=== PATIENT | female | born 2000 | race Caucasian/White ===

== ENCOUNTER 2020-08-18 10:22 | Emergency (ER) | payer BC, SELFPAY ==
[2020-08-18 10:24] VITALS: BP 121/70; PULSE 89; RESP 17; TEMP 36; O2SAT 100; BMI 27.8
--- NOTE | 2020-08-18 11:06 | US_ITS ---
INDICATION: left pelvic pain EXAMINATION: Ultrasound US Transvaginal Non-OB TECHNIQUE: Transvaginal (for optimal evaluation of the adnexa) pelvic ultrasound was performed. Grayscale, spectral waveform, and color flow Doppler evaluation of the adnexa. COMPARISON: None. FINDINGS: UTERUS: Anteverted. The uterus measures 6.3 x 2.75 x 3.9 cm for a total volume of 35.33 cm There is no uterine mass. The endometrial stripe measures 16 mm in AP diameter which is within normal limits. RIGHT OVARY: 4.74 x 2.12 x 3.3 cm. Non-enlarged, normal echogenicity. There is normal arterial inflow and venous outflow present in the right ovary physiologic cyst are noted in the right ovary. LEFT OVARY: 3.72 x 2.3 x 2.98 cm. Non-enlarged, normal echogenicity. There is normal arterial inflow and venous outflow present in the left ovary. Physiologic cyst is seen in the left ovary FREE FLUID: None. US/Transvaginal Non- IMPRESSION: Normal transvaginal pelvic ultrasound Electronically Signed: Hal De Los Santos, at 13:32 EST Tel , Service support ,
--- NOTE | 2020-08-18 11:14 | ED.DCSUM_ITS ---
- ER Visit Summary Date of Service: 08/18/20 Chief Complaint: Abdominal pain History of Present Illness: The patient is a 19 F who presents with abdominal pain that has been getting worse over the past 3 days. Patient states the pain is waxing and waning. Patient states the pain is on the left side of her abdomen. Patient describes it as stabbing. Patient states nothing makes it worse and nothing makes it better. Patient admits to nausea but denies any vomiting. Patient states her last menstrual period was 04/07/2020. Patient states her [employer] told her to come in for possible tubal miscarriage. Physical Examination: Vital signs are stable. Patient is afebrile. Patient is in no acute distress. Oral mucosa is pink and moist. Neck is supple. Trachea is midline. There is no JVD. Heart was regular rate and rhythm. Lungs are clear and equal bilaterally. Abdomen is soft. Bowel sounds are normal. There is some mild left lower quadrant tenderness. There is no rebound or guarding noted. Cranial nerves II through XII are intact. There are no focal motor or sensory deficits. Extremities are intact. There is no calf tenderness or edema. Test Results: CBC was normal. Quantitative hCG was less than 1. Urinalysis is normal. Blood type was A-. Pelvic ultrasound was obtained for possible miscarriage. There is no acute abnormality. There is no noted. This was interpreted by the radiologist and reviewed by myself. Emergency Department Course and Treatment: Since the patient is blood type a negative. RhoGam was ordered for the patient. Patient was instructed to follow-up with her [employer] in 5 to 7 days. Patient understood and was agreeable with the plan. All questions were answered. Disposition: Discharge home Impression: 1. Complete miscarriage This note was generated with [employer] software. It may contain incorrect words, spelling, and punctuation that were not noted in review of the chart prior to signing ED Disposition - Plan for ED Patient: Disposition: Home or Assisted Living Diagnosis: Complete spontaneous Instructions: ED MISCARRIAGE Completed Referrals: Charlee Rodriguez NP, INJURY/SAFETY HAZARD ASSESSMENT-C [Primary Care Provider] - 5-7 Days
[2020-08-18] MEDS: 0.9% Normal Saline 1,000 ML 1000 ML IV (11:17)
[2020-08-18 11:24] LABS: Absolute Lymphocyte Count 1.91 X10^3/uL (0.83-4.51); Absolute Neutrophil Count 2.8 X10^3/uL (2.0-7.7); Basophil# 0.03 X10^3/uL; Basophil% 0.6 % (0-1); Eosinophil# 0.08 X10^3/uL; Eosinophils% 1.5 % (0-5); Lymphocyte # 1.91 X10^3/ul (4.0); Lymphocyte % 36.8 % (19-41); Mean Corp Hgb Conc 33.3 g/dL (32-36); Mean Corpuscular Hgb 30.8 pg (27.0-32.0); Mean Corpuscular Volume 92.3 fL (81-99); Mean Platelet Vol. 10.5 fl (6.2-12.0); Monocyte# 0.33 X10^3/uL; Monocyte% 6.4 % (0-10); NRBC Flagged by Analyzer 0 % (0-5); Neutrophil # 2.83 X10^3/uL (2.7-7.7); Neutrophil % 54.5 % (47-70); Platelet Count 238 K/mm3 (150-450); RBC Distribution Width CV 11.9 % (11.6-14.6); Red Blood Count 4.55 M/mm3 (4.2-5.4); White Blood Count 5.2 K/mm3 (4.4-11.0)
[2020-08-18 11:41] LABS: hCG Titer Quant., Serum < 1 mIU/mL (1-3)
[2020-08-18 13:23] VITALS: BP 104/58; PULSE 53; RESP 16; O2SAT 100
[2020-08-18 13:59] LABS: Bacteria 0 SEEN /hpf (None Seen); Mucous, Urine 0 SEEN /hpf (<or=2+); Red Blood Cells-Urine 0 SEEN /hpf (0-5); White Blood Cells 0 SEEN /hpf (0-5)
[2020-08-18 14:02] LABS: Color, Urine Yellow (Yellow); Glucose, Dipstick Normal (Normal); Ketone-Dipstick Negative (Negative); Leukocyte Esterase-Dipstick Negative /ul (Negative); Nitrite-Dipstick Negative (Negative); Occult Blood-Urine Negative /ul (Negative); Protein-Dipstick Negative (Negative); Urine Bilirubin Dipstick Negative (Negative); Urine Clarity Sl. Cloudy (Clear); Urine Urobilinogen Normal (Normal)
[2020-08-18 14:07] LABS: Amorphous Sediment 1+ URATE; Squamous Epithelial Cells - UA 0-5 SEEN /hpf (5-10)
== END 2020-08-18 16:06 | disposition home or self-care (01) ==
PROVIDERS: Emergency Provider Emergency Medicine; PCP Nurse Practitioner Family
DX: O03.9 Complete or unspecified spontaneous abortion without complication (principal); F17.290 Nicotine dependence, other tobacco product, uncomplicated
CPT/HCPCS: 76830; 81001; 84702; 85025; 86850; 86900; 86901; 90384; 93976; 96360; 96372; 99282; J7030; J2790

== ENCOUNTER → 2020-09-04 09:56 | Outpatient (CLI) | payer BC, SELFPAY ==
[2020-08-18 10:24] VITALS: BMI 27.8
[2020-09-04 10:53] LABS: Glucose 75GTT - Fasting 80 mg/dL (70-99)
[2020-09-04 10:59] LABS: Insulin 75GTT - Fasting 10.9 mU/L (2.6-37.6)
[2020-09-04 11:43] LABS: Hemoglobin A1c 4.8 % (3.8-5.6)
[2020-09-04 12:09] LABS: Glucose 75GTT - 30 minutes 100 mg/dL (100-160)
[2020-09-04 12:09] LABS: Glucose 75GTT - 60 minutes 97 mg/dL (100-160)
[2020-09-04 12:21] LABS: Insulin 75GTT - 30 MIN 81.5 mU/L (Not Estab.)
[2020-09-04 12:22] LABS: Insulin 75GTT - 60 min 152.3 mU/L (Not Estab)
[2020-09-04 13:10] LABS: Glucose 75GTT - 120 minutes 74 mg/dL (70-140)
[2020-09-04 13:17] LABS: Insulin 75GTT - 120 min 59.2 mU/L (Not Estab.)
== END ==
PROVIDERS: PCP Nurse Practitioner Family; Referring Provider Obstetrics & Gynecology; Visit Provider Obstetrics & Gynecology
DX: E28.1 Androgen excess (principal); R73.09 Other abnormal glucose
CPT/HCPCS: 36415; 82951; 82952; 83036; 83525

== ENCOUNTER → 2021-04-13 | Outpatient (CLI) | payer BC, SELFPAY | END | disposition home or self-care (01) | LOC: LABSPEC 13:50 | PROVIDERS: PCP Nurse Practitioner Family; Visit Provider Obstetrics & Gynecology | DX: R35.0 Frequency of micturition (principal) | CPT/HCPCS: 87086; 87088 ==

== ENCOUNTER → 2021-05-04 08:56 | Outpatient (CLI) | payer BC, SELFPAY ==
[2021-05-06 13:32] LABS: Sex Hormone-binding Globulin 34.4 nmol/L (24.6-122.0)
== END ==
PROVIDERS: PCP Nurse Practitioner Family; Visit Provider Obstetrics & Gynecology
DX: E28.1 Androgen excess (principal); E28.2 Polycystic ovarian syndrome; N92.5 Other specified irregular menstruation; N94.6 Dysmenorrhea, unspecified
CPT/HCPCS: 36415; 82533; 82627; 84270; 84403; 82626

== ENCOUNTER → 2021-06-17 09:07 | Outpatient (CLI) | payer BC, SELFPAY | PROVIDERS: PCP Nurse Practitioner Family; Visit Provider Obstetrics & Gynecology | DX: E28.2 Polycystic ovarian syndrome (principal); Z51.81 Encounter for therapeutic drug level monitoring | CPT/HCPCS: 36415; 82533; 82627; 84403; 82626 ==

== ENCOUNTER 2021-10-05 12:09 | Outpatient (CLI) | payer BC, SELFPAY ==
[2021-10-05 13:30] LABS: Progesterone Level 1.88 ng/mL (See Comment); Vitamin D,25 Hydroxy 21.8 ng/mL
== END 2021-10-05 23:59 | disposition short-term general hospital (02) ==
LOC: WOBLAB 12:10
PROVIDERS: PCP Nurse Practitioner Family; Visit Provider Obstetrics & Gynecology
DX: E28.2 Polycystic ovarian syndrome (principal); E28.1 Androgen excess; E55.9 Vitamin D deficiency, unspecified
CPT/HCPCS: 36415; 82306; 82627; 84144; 82626

== ENCOUNTER → 2022-03-29 | Outpatient (CLI) | payer BC, SELFPAY ==
[2022-03-29 17:59] LABS: hCG Titer Quant., Serum < 1 mIU/mL (1-3)
[2022-03-29 18:01] LABS: Progesterone Level 1.03 ng/mL (See Comment); Vitamin D,25 Hydroxy 30.9 ng/mL
== END | disposition home or self-care (01) ==
LOC: WOBLAB 15:31
PROVIDERS: PCP Nurse Practitioner Family; Visit Provider Obstetrics & Gynecology
DX: E55.9 Vitamin D deficiency, unspecified (principal); N91.5 Oligomenorrhea, unspecified
CPT/HCPCS: 36415; 82306; 84144; 84702

== ENCOUNTER → 2022-08-15 | Outpatient (CLI) | payer BC, SELFPAY ==
[2022-08-15 14:48] LABS: EXAGEN MAILED SPECIMEN
[2022-08-15 17:47] LABS: Absolute Lymphocyte Count 5.52 X10^3/uL (0.83-4.51); Absolute Neutrophil Count 11.1 X10^3/uL (2.0-7.7); Basophil# 0.12 X10^3/uL; Basophil% 0.7 % (0-1); Eosinophil# 0.14 X10^3/uL; Eosinophils% 0.8 % (0-5); Hematocrit 40.2 % (37-47); Hemoglobin 13.6 g/dL (12.0-15.0); Lymphocyte # 5.52 X10^3/ul (0.83-4.51); Lymphocyte % 30.3 % (19-41); Mean Corp Hgb Conc 33.8 g/dL (32-36); Mean Corpuscular Hgb 29.7 pg (27.0-32.0); Mean Corpuscular Volume 87.8 fL (81-99); Mean Platelet Vol. 10.5 fl (6.2-12.0); Monocyte% 5.5 % (0-10); NRBC Flagged by Analyzer 0 % (0-5); Neutrophil # 11.14 X10^3/uL (2.7-7.7); Neutrophil % 61.1 % (47-70); POSITIVE DIFFERENTIAL YES; Platelet Count 315 K/mm3 (150-450); RBC Distribution Width CV 11.9 % (11.6-14.6); RBC Distribution Width SD 38.3 fl (35.1-43.9); Red Blood Count 4.58 M/mm3 (4.2-5.4); White Blood Count 18.2 K/mm3 (4.4-11.0)
[2022-08-15 17:52] LABS: Differential Indicated SCAN CRITERIA MET
[2022-08-15 17:56] LABS: Prothrombin Time (Protime)PT. 13.1 SECONDS (11.7-14.9)
[2022-08-15 17:59] LABS: Color, Urine Yellow (Yellow); Glucose, Dipstick Normal (Normal); Ketone-Dipstick Negative (Negative); Leukocyte Esterase-Dipstick Negative /ul (Negative); Nitrite-Dipstick Negative (Negative); Occult Blood-Urine 150 /ul (Negative); Protein-Dipstick 15 mg/dl (Negative); Specific Gravity, Urine 1.025 (1.002-1.030); Urine Bilirubin Dipstick Negative (Negative); Urine Clarity Sl. Cloudy (Clear); Urine Urobilinogen Normal (Normal)
[2022-08-15 18:09] LABS: Differential Comment SCANNED
[2022-08-15 18:36] LABS: ALB/GLOB Ratio 0.9 RATIO (0.9-2.4); AST(SGOT) 8 U/L (15-37); Alanine Aminotransfer ALT/SGPT 21 U/L (13-56); Albumin, Serum 3.6 g/dL (3.2-5.0); Alkaline Phosphatase 80 U/L (45-117); Anion Gap 10 (5-15); BUN 20 mg/dL (7-18); BUN/Creat Ratio 21.6 RATIO (10-20); Calcium,Total 8.8 mg/dL (8.5-10.1); Chloride 105 mmol/L (98-107); Creatinine, Serum 0.93 mg/dL (0.55-1.02); EST Glomerular Filtration Rate 81 mL/min (>60); Est Glom Filt Rate - Afr Amer 97 mL/min (>60); Globulin 3.9 g/dL (2.2-4.2); Glucose 70 mg/dL (74-106); Potassium 3.3 mmol/L (3.5-5.1); Protein, Total 7.5 g/dL (6.4-8.2); Sodium Level 140 mmol/L (136-145)
[2022-08-15 18:41] LABS: Protein:Creat Ratio 78 mg/g CRE (0-200)
[2022-08-15 19:05] LABS: Hepatitis B Surface Antibody Non-Reactive; Hepatitis B Surface Antigen Non-Reactive (Nonreactive); Hepatitis C Antibody Non-Reactive (Nonreactive)
[2022-08-21 14:07] LABS: Dilute Prothrombin Time (dPT) 42.9 sec (0.0-47.6); Dilute Russell Viper Venom 44.4 sec (0.0-47.0); Hexagonal Phase Phospholipid 6 sec (0-11); PTT-LA 37.5 sec (0.0-51.9); Thrombin Time 20.5 sec (0.0-23.0); dPT Confirm Ratio 1.32 Ratio (0.00-1.34)
[2022-08-21 14:44] LABS: Interpretation Comment: (.); Thrombin Time 19.2 sec (0.0-23.0)
== END | disposition home or self-care (01) ==
LOC: MTLAB 13:45
PROVIDERS: PCP Nurse Practitioner Family; Referring Provider Internal Medicine Rheumatology; Visit Provider Internal Medicine Rheumatology
DX: M06.4 Inflammatory polyarthropathy (principal); R76.8 Other specified abnormal immunological findings in serum; R51.9 Headache, unspecified; K58.0 Irritable bowel syndrome with diarrhea; F41.9 Anxiety disorder, unspecified; F32.A Depression, unspecified; E28.2 Polycystic ovarian syndrome; H93.13 Tinnitus, bilateral
CPT/HCPCS: 36415; 80053; 81002; 82570; 84156; 85025; 85598; 85610; 85670; 85730; 86706; 86803; 87340

== ENCOUNTER → 2024-02-27 | Outpatient (CLI) | payer OTHER, SELFPAY ==
[2024-02-27 15:51] LABS: Absolute Lymphocyte Count 2.59 X10^3/uL (0.83-4.51); Absolute Neutrophil Count 4.7 X10^3/uL (2.0-7.7); Basophil# 0.05 X10^3/uL; Basophil% 0.6 % (0-1); Eosinophil# 0.09 X10^3/uL; Eosinophils% 1.1 % (0-5); Hematocrit 37.7 % (37-47); Hemoglobin 12.7 g/dL (12.0-15.0); Lymphocyte # 2.59 X10^3/ul (0.83-4.51); Lymphocyte % 32.7 % (19-41); Mean Corp Hgb Conc 33.7 g/dL (32-36); Mean Corpuscular Volume 88.9 fL (81-99); Mean Platelet Vol. 11.1 fl (6.2-12.0); Monocyte# 0.43 X10^3/uL; Monocyte% 5.4 % (0-10); NRBC Flagged by Analyzer 0 % (0-5); Neutrophil # 4.73 X10^3/uL (2.7-7.7); Neutrophil % 59.7 % (47-70); Platelet Count 250 K/mm3 (150-450); RBC Distribution Width CV 12.3 % (11.6-14.6); RBC Distribution Width SD 39.8 fl (35.1-43.9); Red Blood Count 4.24 M/mm3 (4.2-5.4); White Blood Count 7.9 K/mm3 (4.4-11.0)
[2024-02-27 16:17] LABS: ALB/GLOB Ratio 0.9 RATIO (0.9-2.4); AST(SGOT) 7 U/L (15-37); Alanine Aminotransfer ALT/SGPT 15 U/L (13-56); Albumin, Serum 3.5 g/dL (3.2-5.0); Alkaline Phosphatase 55 U/L (45-117); Anion Gap 6 (5-15); BUN 10 mg/dL (7-18); BUN/Creat Ratio 12.3 RATIO (10-20); Calcium,Total 8.6 mg/dL (8.5-10.1); Chloride 109 mmol/L (98-107); Creatinine, Serum 0.81 mg/dL (0.55-1.02); EST Glomerular Filtration Rate 93 mL/min (>60); Est Glom Filt Rate - Afr Amer 112 mL/min (>60); Globulin 3.7 g/dL (2.2-4.2); Glucose 91 mg/dL (74-106); Potassium 3.7 mmol/L (3.5-5.1); Protein, Total 7.2 g/dL (6.4-8.2); Sodium Level 137 mmol/L (136-145)
== END | disposition home or self-care (01) ==
LOC: MTLAB 12:38
PROVIDERS: PCP Nurse Practitioner Family; Referring Provider Internal Medicine Rheumatology; Visit Provider Internal Medicine Rheumatology
DX: M06.4 Inflammatory polyarthropathy (principal); Z79.899 Other long term (current) drug therapy; R76.8 Other specified abnormal immunological findings in serum
CPT/HCPCS: 36415; 80053; 85025